=== PATIENT | female | born 1930 | race Caucasian/White ===

== ENCOUNTER 2017-03-02 17:03 | Emergency (ER) | payer OTHER, MEDICAID ==
[~2017-03-02] VITALS: Ht 154.9 cm; Wt 75.7 kg
[~2017-03-02 17:03] MED LIST: ASA81 PO; BENA40TA65 PO; DONE5TAB3 PO; GLIP10TA11 PO; LOVA20TA PO; LOVA20TA2 PO; MEMA21CA PO; NIFE60TA7 PO
[2017-03-02 17:21] VITALS: BP 138/73; PULSE 66; RESP 14; TEMP 98.7; O2SAT 95
--- NOTE | 2017-03-02 17:30 | NUR ---
PER PATIENT'S DAUGHTER SHE NOTICED A DARK BROWN URINE WITH STRONG SMELL,POOR APPETITE,DEPRESSED MOOD,RASHES TO INNER THIGH ON WEDNESDAY WHEN SHE VISITED THE PATIENT AT THE [facility] WHERE THE PATIENT LIVES.TODAY THE DAUGHTER TOOK THE PATIENT TO HER PRIMARY DOCTOR AND ORDERED TO TAKE PATIENT TO ER FOR EVAL WITH A DIAGNOSIS OF DEHYDRATION,LOSS OF APPETITE AND LEFT GLUTEAL ULCERATION.NO COMPLAIN OF OF PAIN/INJURIES PER PATIENT OR NOTED Addendum: 03/02/17 at 2012 by LEELEE NO OTHER COMPLAINTS//INJURIES PER PATIENT/DAUGHTER OR NOTED
--- NOTE | 2017-03-02 17:30 | NUR ---
ER Dr. Mendez at bedside examining patient.
--- NOTE | 2017-03-02 17:33 | NUR ---
Patient ambulated to bed with daughter.
[2017-03-02 18:05] LABS: BASOPHILS # (AUTO) 0.1 K/uL (0.0-0.2); BASOPHILS % (AUTO) 0.5 % (0.0-2.0); EOSINOPHILS # (AUTO) 0.4 K/uL (0.0-0.4); EOSINOPHILS % (AUTO) 3.5 % (0.0-4.0); HEMATOCRIT 40.7 % (36-48); HEMOGLOBIN 13.5 g/dL (12.0-16.0); LYMPHOCYTES # (AUTO) 1.7 K/uL (1.0-5.5); LYMPHOCYTES % (AUTO) 16.7 % (20.5-51.5); MEAN CORPUSCULAR HEMOGLOBIN 30 pg (27-31); MEAN CORPUSCULAR HGB CONC 33 % (32-36); MEAN CORPUSCULAR VOLUME 90 fL (79.0-98.0); MONOCYTES # (AUTO) 0.7 K/uL (0.0-1.0); MONOCYTES % (AUTO) 7.3 % (1.7-9.3); NEUTROPHILS # (AUTO) 7.1 K/uL (1.8-7.7); PLATELET COUNT (AUTO) 199 K/uL (130-430); RED BLOOD CELL COUNT(AUTO) 4.52 MIL/uL (4.2-6.2); RED CELL DISTRIBUTION WIDTH 12.2 % (9.0-15.0)
[2017-03-02 18:19] LABS: PROTHROMBIN TIME 10.8 SECS (9.5-12.5)
[2017-03-02 18:31] LABS: ANION GAP 4 (5-15); CALCIUM 8.5 mg/dL (8.4-11.0); CHLORIDE 102 mmol/L (98-107); CREATININE 1.06 mg/dL (0.55-1.30); GLUCOSE 147 mg/dL (70-99); POTASSIUM 3.8 mmol/L (3.5-5.1); SODIUM SERUM 135 mmol/L (136-145); UREA NITROGEN, BLOOD 22 mg/dL (8-21)
[2017-03-02 18:44] LABS: ALANINE AMINOTRANSFERASE 29 U/L (12-78); ALBUMIN 3.6 g/dL (3.4-4.8); ASPARTATE AMINOTRANSFERASE 22 U/L (10-37); FREE T4 (FREE THYROXINE) 0.6 ng/dL (0.6-1.6); TOTAL BILIRUBIN 0.8 mg/dL (0.0-1.0); TOTAL PROTEIN, SERUM 7.1 g/dL (6.4-8.3)
[2017-03-02 18:47] LABS: ALCOHOL, BLOOD < 3 mg/dL (<10)
[2017-03-02 19:09] LABS: BILIRUBIN,URINE NEGATIVE (NEGATIVE); BLOOD, URINE NEGATIVE (NEGATIVE); CLARITY/URINE CLEAR (CLEAR); GLUCOSE,URINE NEGATIVE (NEGATIVE); KETONES,URINE NEGATIVE (NEGATIVE); LEUKOCYTE ESTERASE ,URINE NEGATIVE (NEGATIVE); NITRITE, URINE NEGATIVE (NEGATIVE); PROTEIN URINE NEGATIVE (NEGATIVE); UROBILINOGEN,URINE 0.2 (0.2-1.0)
[2017-03-02 19:13] LABS: COLOR,URINE STRAW (YELLOW)
[2017-03-02 19:36] LABS: BARBITURATE, URINE NEGATIVE (NEG <=200); BENZODIAZEPINE, URINE NEGATIVE (NEG <=150); CANNABINOID, URINE NEGATIVE (NEG <=50); COCAINE, URINE NEGATIVE (NEG <=150); METHAMPHETAMINES SCREEN,URINE NEGATIVE (NEG <=500); OPIATE, URINE NEGATIVE (NEG <=100); PHENCYCLIDINE SCREEN,URINE NEGATIVE (NEG <=25); UR TRICYCLIC ANTIDEPRESSANTS NEGATIVE (NEG <=300); URINE AMPHETAMINE NEGATIVE (NEG <=500); URINE METHADONE NEGATIVE (NEG <=200); URINE OXYCODONE SCREEN NEGATIVE (NEG <=100); URINE PROPOXYPHENE SCREEN NEGATIVE (NEG <=300)
[2017-03-02 19:45] VITALS: BP 138/73; PULSE 66; RESP 14; TEMP 98.7; O2SAT 95
--- NOTE | 2017-03-02 19:45 | NUR ---
Patient given written and verbal discharge instructions and verbalizes understanding. ER MD DR. BLOOM discussed with patient the results and treatment provided. Patient in stable condition. ID arm band removed. IV catheter removed intact and dressing applied, no active bleeding. Rx of KEFLEX given. Patient educated on pain management and to follow up with PMD. Pain Scale 0/10, AMBULATED W/ STEADY GAIT. Opportunity for questions provided and answered.
== END 2017-03-02 19:45 | disposition home or self-care (01) ==
LOC: SED 17:03
DX: L98.419 Non-pressure chronic ulcer of buttock with unspecified severity (principal); F03.90 Unspecified dementia, unspecified severity, without behavioral disturbance, psychotic disturbance, mood disturbance, and anxiety; E11.9 Type 2 diabetes mellitus without complications; I10 Essential (primary) hypertension; Z88.0 Allergy status to penicillin; Z88.6 Allergy status to analgesic agent; Z88.1 Allergy status to other antibiotic agents; Z79.82 Long term (current) use of aspirin; Z86.73 Personal history of transient ischemic attack (TIA), and cerebral infarction without residual deficits; Z90.49 Acquired absence of other specified parts of digestive tract; Z90.710 Acquired absence of both cervix and uterus
CPT/HCPCS: 36415; 71010; 74000; 80053; 80307; 81003; 82140; 83605; 83880; 84439; 84484; 85025; 85610; 87040; 93005; 99285; G0482